=== PATIENT | female | born 1995 | race Caucasian/White ===

== ENCOUNTER 2017-07-22 08:43 | Emergency (ER) | payer BC ==
[2017-07-22 09:33] VITALS: BP 116/71
--- NOTE | 2017-07-22 10:24 | UC ---
Throat Pain/Nasal Jan HPI - HPI Summary HPI Summary: Pt is c/o yellow nasal discharge with some blood, pain over L face(points to L maxilla) and cough. She denies ear pain, fever/chills, and dental pain or swelling. This began 3 weeks ago and is worsening. she has tx with mucinex and pseudophed with no relief. - History of Current Complaint Chief Complaint: UCGeneralIllness Stated Complaint: COUGH,CONGESTION,PAIN IN FACE Time Seen by Provider: 07/22/17 10:05 Hx Obtained From: Patient Hx Last Menstrual Period: 07/02/17 ?: Yes Onset/Duration: Gradual Onset Severity: Moderate Pain Intensity: 4 Cough: Nonproductive Associated Signs & Symptoms: Positive: Sinus Discomfort, Nasal Discharge. Negative: Wheezing, Hoarseness, Fever Related History: Other (Noted In Comments) - none - Epiglottits Risk Factors Epiglottis Risk Factors: Negative - Allergies/Home Medications Allergies/Adverse Reactions: Allergies Allergy/AdvReac Type Severity Reaction Status Date / Time No Known Allergies Allergy Verified 07/22/17 09:33 Home Medications: Home Medications Norgestimate-Ethinyl Estradiol [Sprintec 28 Day Tablet] 07/22/17 [History] PMH/Surg Hx/FS Hx/Imm Hx Previously Healthy: Yes Endocrine History: Other - none Other Endocrine History: none Cardiovascular History: Other - none Other Cardiovascular History: none - Surgical History Surgical History: Yes Surgery Procedure, Year, and Place: wisdom teeth - Family History Known Family History: Positive: None - Social History Occupation: Student Substance Use Type: None Smoking Status (MU): Never Smoked Tobacco Review of Systems Constitutional: Negative Skin: Negative Eyes: Negative ENT: Nasal Discharge, Sinus Congestion, Sinus Pain/Tenderness Respiratory: Cough Cardiovascular: Negative Gastrointestinal: Negative Genitourinary: Negative Motor: Negative Neurovascular: Negative Musculoskeletal: Negative Neurological: Negative Psychological: Negative Is Patient Immunocompromised?: No All Other Systems Reviewed And Are Negative: Yes Physical Exam Triage Information Reviewed: Yes Appearance: Well-Appearing Vital Signs: Initial Vital Signs Temp 98.3 F 07/22/17 09:28 Pulse 86 07/22/17 09:28 Resp 20 07/22/17 09:28 BP 116/71 07/22/17 09:28 Pulse Ox 100 07/22/17 09:28 Vital Signs Reviewed: Yes Eye Exam: Normal ENT: Positive: Pharynx normal, Nasal congestion, Nasal drainage, TMs normal, Sinus tenderness, Other - L nare with yellow drainage and L maxila is tender. Negative: Trismus, Muffled voice, Hoarse voice Dental: Positive: Percussion Tenderness @ Neck: Positive: Supple, Nontender, No Lymphadenopathy Respiratory: Positive: Lungs clear, Normal breath sounds, No respiratory distress, No accessory muscle use, Other: - no cough during exam Cardiovascular: Positive: RRR, No Murmur Abdomen Description: Positive: Nontender, No Organomegaly, Soft Bowel Sounds: Positive: Present Neurological: Positive: Alert Skin Exam: Normal Throat Pain/Nasal Course/Dx - Course Course Of Treatment: non toxic, dental exam wnl. exam c/w sinusitis. will tx otc flonase, probiotics plus augmentin. close f[facility] advise at time of visit. - Differential Dx/Diagnosis Provider Diagnoses: sinusitis Discharge - Discharge Plan Condition: Stable Disposition: HOME Prescriptions: Amoxicillin/Clavulanate TAB* [Augmentin TAB 875*] 875 mg PO BID 10 Days #20 tab Patient Education Materials: Sinusitis (ED) Referrals: Non Staff,Doctor [Primary Care Provider] - Additional Instructions: CONSIDER FLONASE OVER THE COUNTER PER LABEL AND A PROBIOTIC PER LABEL. FOLLOW UP WITH [facility] IN 7 DAYS OR SOONER IF WORSE
== END 2017-07-22 10:37 | disposition home or self-care (01) ==
LOC: UCCORT 08:43
DX: J32.9 Chronic sinusitis, unspecified (principal)
CPT/HCPCS: 99212; G0463

== ENCOUNTER 2018-09-21 16:15 | Emergency (ER) | payer BC ==
[2018-09-21 18:20] VITALS: BP 122/81
--- NOTE | 2018-09-21 18:27 | UC ---
UC General HPI - HPI Summary HPI Summary: PT C/O SINUS PAIN, PRESSURE AND CONGESTION SINCE THE END OF LAST MONTH. SHE WENT TO [facility]. SHE HAS BEEN TX'ING WITH OTC MEDICATIONS WITHOUT RELIEF. HX SINUSITIS AND THIS FEELS THE SAME. - History of Current Complaint Chief Complaint: UCGeneralIllness Stated Complaint: SINUS CONGESTION Time Seen by Provider: 09/21/18 18:17 Hx Obtained From: Patient Hx Last Menstrual Period: 09/19/18 Onset/Duration: Gradual Onset Timing: Constant Pain Intensity: 4 Associated Signs & Symptoms: Negative: Fever, Headache - Allergy/Home Medications Allergies/Adverse Reactions: Allergies Allergy/AdvReac Type Severity Reaction Status Date / Time No Known Allergies Allergy Verified 09/21/18 18:20 PMH/Surg Hx/FS Hx/Imm Hx Previously Healthy: Yes - Surgical History Surgical History: Yes Surgery Procedure, Year, and Place: wisdom teeth - Family History Known Family History: Positive: None - Social History Occupation: Student Alcohol Use: Occasionally Alcohol Amount: 1-2 times a week Substance Use Type: None Smoking Status (MU): Never Smoked Tobacco Review of Systems All Other Systems Reviewed And Are Negative: Yes ENT: Positive: Nasal Discharge, Sinus Congestion, Sinus Pain/Tenderness Physical Exam Triage Information Reviewed: Yes Appearance: Well-Appearing Vital Signs: Initial Vital Signs Temp 98.6 F 09/21/18 18:16 Pulse 81 09/21/18 18:16 Resp 17 09/21/18 18:16 BP 122/81 09/21/18 18:16 Pulse Ox 100 09/21/18 18:16 Vital Signs Reviewed: Yes Eyes: Positive: Conjunctiva Clear ENT: Positive: Pharynx normal, Nasal congestion, TMs normal, Sinus tenderness. Negative: Nasal drainage Neck: Positive: Supple, Nontender, No Lymphadenopathy Respiratory: Positive: Lungs clear, Normal breath sounds, No respiratory distress Cardiovascular: Positive: RRR, No Murmur Abdomen Description: Positive: Nontender, No Organomegaly, Soft Bowel Sounds: Positive: Present Musculoskeletal: Positive: ROM Intact Neurological: Positive: Alert Psychological: Positive: Age Appropriate Behavior Skin Exam: Normal Course/Dx - Diagnoses Provider Diagnosis: Sinusitis Discharge - Sign-Out/Discharge Documenting (check all that apply): Patient Departure All imaging exams completed and their final reports reviewed: No Studies - Discharge Plan Condition: Stable Disposition: HOME Prescriptions: Amoxicillin/Clavulanate TAB* [Augmentin TAB 875*] 875 mg PO BID 10 Days #20 tab Patient Education Materials: Sinusitis (ED) Referrals: [facility] [, APPLICATION, OTHER] - 7 Days Additional Instructions: FOLLOW UP IF NOT BETTER IN 7 DAYS OR SOONER IF WORSE. - Billing Disposition and Condition Condition: STABLE Disposition: Home
== END 2018-09-21 18:38 | disposition home or self-care (01) ==
LOC: UCCORT 16:15
DX: J32.9 Chronic sinusitis, unspecified (principal)
CPT/HCPCS: 99212; G0463